=== PATIENT | female | born 1965 | race Caucasian/White ===

== ENCOUNTER 2023-02-17 10:08 | Emergency (ER) | payer MEDICAID, SELFPAY ==
[2023-02-17] VITALS (14 sets, daily range): BP systolic 128–153; BP diastolic 76–92; PULSE 70–85; RESP 18; TEMP 36.7; O2SAT 94–98; BMI 25.0
--- NOTE | 2023-02-17 10:37 | CRLHL7_ITS ---
For Patients: As a result of the Century Cures Act, medical imaging exams and procedure reports are released immediately into your electronic medical record. You may view this report before your referring provider. If you have questions, please contact your health care provider. INDICATION: CHEST PAIN TECHNIQUE: Chest 2 views COMPARISON: 01/14/2017 FINDINGS: Lung volumes are increased. No infiltrate or edema. No effusion or pneumothorax. Mediastinum stable. IMPRESSION: Mild obstructive pulmonary physiology. No infiltrate. Dictated by Phil Marinelli MD @ 02/17/2023 11:51:22 AM (Electronically Signed)
--- NOTE | 2023-02-17 10:38 | ED_ITS ---
HPI - Chest Pain General Date Seen: 02/17/23 Chief Complaint: Hypertension Stated Complaint: High BP Time Seen by Provider: 02/17/23 10:24 Source: patient Mode of arrival: ambulatory Limitations: no limitations History of Present Illness HPI narrative: Patient is a 57-year-old female presents here with the 2-3 week history of high blood pressure in left upper chest discomfort, this chest discomfort comes and goes occurs randomly with rest, and also with exertion, it lasts for few seconds and then goes away, there is no radiation to her neck back or shoulders associated with this. This however has worried her as she has lost a couple family members recently, a cousin of cirrhosis but had hardening of the arteries, he was the same ages her, and she also lost her brother a number of years ago who of a heart attack in his early 50s. She says she knows she has risk factors, he smokes and smokes and she is 15 years old least a pack a day, now with her elevated blood pressure, she says her cholesterol is elevated not been checked for a few years, is on no medication for this no history of diabetes, and denies any use of any illicit substances. No leg swelling, no pleuritic pain, no coughing, no syncope, no past history DVTs pulmonary emboli, aortic rupture or disastrous. She is using some cold medicines [id number] Tylenol with decongestant for some sinus issues in taking licorice root also. complaint: chest pain Related Data Home Medications Medication Instructions Recorded Confirmed albuterol sulfate 90 mcg/actuation 1 - 2 puff inhalation Q6H PRN 02/17/23 02/17/23 aerosol inhaler (Ventolin HFA) dyspnea amoxicillin 875 mg-potassium 1 tab PO BID 02/17/23 02/17/23 clavulanate 125 mg tablet clobetasol 0.05 % topical cream topical BID 02/17/23 Allergies Allergy/AdvReac Type Severity Reaction Status Date / Time No Known Drug Allergies Allergy Verified 02/17/23 13:18 Review of Systems Status of ROS Reports: 10 or more systems reviewed and unremarkable except as noted in History and below PFSH PFSH Social History Smoking Status: Current every day smoker How often do you have a drink containing alcohol: never AUDIT-C Alcohol total score: 0 Non-prescribed substance use: denies use Exam Narrative Exam Narrative: Patient is a very nice lady she is seen in room 2, nontoxic in no having chest pain currently. Her vital signs are reviewed. Pupils are equal round reactive to light there is no scleral icterus and redness, TMs are normal, oropharynx normal, fundi appear normal, with no acute changes. Extraocular muscles are normal and cranial nerves 3-12 are normal, pharynx is normal, there is no lymphadenopathy anterior posterior chains, carotid upstrokes are equal bilaterally, JVP is flat. Neck is supple full range of motion there is no meningismus, thyroid is normal palpable, not enlarged. And nontender. Chest is good air entry bilaterally slightly prolonged expiratory phase with occasional wheezes noted. Heart sounds no clicks murmurs or gallops are noted, no palpable chest pain, although she tells me that it is sore in the left upper chest region. No masses noted, her abdomen is soft, there is no tenderness to palpation, no organomegaly, no CVA tenderness, normal pulses in her lower extremities, normal cap refill no edema negative Homans signs she moves all extremities independently well, and her skin shows no petechiae or rashes. Const Vital Signs, click to edit/add: Vital Signs - 24 hr 02/17/23 10:13 02/17/23 11:57 02/17/23 12:00 Temperature 98.0 F Pulse Rate 79 75 Pulse Rate [Right Pulse Oximeter] 85 Respiratory Rate 18 Blood Pressure Blood Pressure [Right Upper Arm] 153/84 H Pulse Oximetry 95 97 96 Oxygen Delivery Method Room Air 02/17/23 12:01 02/17/23 12:30 02/17/23 12:31 Temperature Pulse Rate 71 81 78 Pulse Rate [Right Pulse Oximeter] Respiratory Rate Blood Pressure 138/76 128/88 Blood Pressure [Right Upper Arm] Pulse Oximetry 98 94 94 Oxygen Delivery Method 02/17/23 13:01 02/17/23 13:02 02/17/23 13:30 Temperature Pulse Rate 76 77 74 Pulse Rate [Right Pulse Oximeter] Respiratory Rate Blood Pressure 147/90 H Blood Pressure [Right Upper Arm] Pulse Oximetry 96 97 97 Oxygen Delivery Method 02/17/23 13:31 02/17/23 14:00 02/17/23 14:01 Temperature Pulse Rate 76 70 73 Pulse Rate [Right Pulse Oximeter] Respiratory Rate Blood Pressure 136/88 133/92 H Blood Pressure [Right Upper Arm] Pulse Oximetry 96 97 96 Oxygen Delivery Method 02/17/23 14:30 02/17/23 14:31 Temperature Pulse Rate 78 76 Pulse Rate [Right Pulse Oximeter] Respiratory Rate Blood Pressure 133/83 Blood Pressure [Right Upper Arm] Pulse Oximetry 96 96 Oxygen Delivery Method Documenting provider has reviewed patient's vital signs: yes Course Course Hospital Course: Discussed the with the patient, that her D-dimer ws ok, but given hx would suggest a CT , we should do a chest CT to rule out a clot, will repeat the troponin, initial 1 was normal, she was comfortable this plan. Reevaluation(s) Time: 15:31 Vital Signs Vital signs: Initial Vital Signs Temperature 98.0 F 02/17/23 10:13 Temperature Source Temporal Artery Scan 02/17/23 10:13 Pulse Rate 85 02/17/23 10:13 Respiratory Rate 18 02/17/23 10:13 Blood Pressure 153/84 H 02/17/23 10:13 Blood Pressure Mean 107 02/17/23 10:13 Blood Pressure Position Sitting 02/17/23 10:13 Pulse Oximetry 95 02/17/23 10:13 Oxygen Delivery Method Room Air 02/17/23 10:13 Vital Signs Temperature 98.0 F 02/17/23 10:13 Pulse Rate 85 02/17/23 10:13 Respiratory Rate 18 02/17/23 10:13 Blood Pressure 153/84 H 02/17/23 10:13 Pulse Oximetry 95 02/17/23 10:13 Oxygen Delivery Method Room Air 02/17/23 10:13 Temperature 98.0 F 02/17/23 10:13 Pulse Rate 76 02/17/23 14:31 Respiratory Rate 18 02/17/23 10:13 Blood Pressure 133/83 02/17/23 14:31 Pulse Oximetry 96 02/17/23 14:31 Oxygen Delivery Method Room Air 02/17/23 10:13 MDM - Chest Pain MDM Narrative Medical decision making narrative: During the evaluation of this patient I considered multiple differential diagnosis is. The life-threatening differential diagnosis include coronary disease/[place], pulmonary embolism, pneumothorax, pneumonia, and aortic dissection. Other differential diagnosis included but were not limited to pericarditis, myocarditis, chest wall pain, GERD, esophageal rupture, rib fracture contusion, pleurisy, as well as other etiologies. Medical Records Data Attestation: I reviewed the patient's medical records. Lab Data Attestation: I reviewed the patient's lab results. Labs: Lab Results 02/17/23 02/17/23 02/17/23 Range/Units 10:37 10:38 11:00 WBC 8.27 (4.50-11.00) K/uL RBC 4.80 (4.00-5.20) m/uL Hgb 14.7 (12.0-16.0) gm/dL Hct 42.8 (33.0-51.0) % MCV 89 (80-100) fL MCH 31 (26-34) pg MCHC 34 (32-36) gm/dL RDW Coeff of Nichole 12.9 (11.5-15.5) % Plt Count 244 (140-440) K/uL Neut % (Auto) 67.6 (42.0-72.0) % Lymph % (Auto) 27.0 (20-44) % Wells % (Auto) 4.1 (0.0-11.0) % Eos % (Auto) 0.7 (0.0-7.0) % Baso % (Auto) 0.5 (0.0-3.0) % Neut # (Auto) 5.59 (1.7-7.0) K/uL Lymph # (Auto) 2.23 (0.90-2.90) K/uL Wells # (Auto) 0.30 (0.00-0.90) K/UL Eos # (Auto) 0.06 (0.00-0.50) K/uL Baso # (Auto) 0.04 (0.00-0.30) K/uL INR 0.84 L (0.91-1.10) APTT 29 (23-33) Seconds D-Dimer Quant (PE/DVT) Cancelled Sodium (135-149) mmol/L Potassium (3.6-5.1) mmol/L Chloride (96-114) mmol/L Carbon Dioxide (20-32) mmol/L BUN (7-30) mg/dL Creatinine (0.5-1.5) mg/dL Estimated Creat Clear Estimated GFR ml/min Glucose (60-115) mg/dL Calcium (8.4-10.6) mg/dL NT-Pro-B Natriuret Pep pg/mL TSH (0.270-4.20) uIU/mL POC Troponin I 0.01 (0.01-0.04) ng/ml 02/17/23 02/17/23 Range/Units 11:00 12:39 WBC (4.50-11.00) K/uL RBC (4.00-5.20) m/uL Hgb (12.0-16.0) gm/dL Hct (33.0-51.0) % MCV (80-100) fL MCH (26-34) pg MCHC (32-36) gm/dL RDW Coeff of Nichole (11.5-15.5) % Plt Count (140-440) K/uL Neut % (Auto) (42.0-72.0) % Lymph % (Auto) (20-44) % Wells % (Auto) (0.0-11.0) % Eos % (Auto) (0.0-7.0) % Baso % (Auto) (0.0-3.0) % Neut # (Auto) (1.7-7.0) K/uL Lymph # (Auto) (0.90-2.90) K/uL Wells # (Auto) (0.00-0.90) K/UL Eos # (Auto) (0.00-0.50) K/uL Baso # (Auto) (0.00-0.30) K/uL INR (0.91-1.10) APTT (23-33) Seconds D-Dimer Quant (PE/DVT) 0.29 Sodium 132 L (135-149) mmol/L Potassium 4.4 (3.6-5.1) mmol/L Chloride 98 (96-114) mmol/L Carbon Dioxide 28 (20-32) mmol/L BUN 13 (7-30) mg/dL Creatinine 0.5 (0.5-1.5) mg/dL Estimated Creat Clear 143.26 Estimated GFR 109 ml/min Glucose 100 (60-115) mg/dL Calcium 8.8 (8.4-10.6) mg/dL NT-Pro-B Natriuret Pep 44 pg/mL TSH 0.920 (0.270-4.20) uIU/mL POC Troponin I 0.00 L (0.01-0.04) ng/ml Imaging Data CT scan - chest: Attestation: I have reviewed the pertinent imaging results. My impression: No acute changes emphysematous changes of lungs Radiologist's impression: Patient: IGNACIO ESTES Facility:?[facility] Patient ID:?[id number] Site Patient ID:?[id number]. Site :?[id number] Study:?CT Chest Angio w/ 95cc Isovue-370 PE Protocol-02/17/2023 1:23:34 PM Ordering Physician:Walker Jolly Final Report: INDICATION: Chest pain. Shortness of breath. TECHNIQUE: CT chest PE was acquired with 95 cc Omnipaque 350 IV contrast. COMPARISON: Chest x-ray 02/17/2023. FINDINGS: Heart and vasculature: Contrast opacification of the pulmonary arterial tree is adequate. No sign of pulmonary embolism. The heart size is normal. No definite evidence right heart strain. There is aneurysmal dilatation of the ascending thoracic aorta with a diameter of 4.3 centimeters. Lungs and pleura: Paraseptal and centrilobular emphysema most notable in the upper lung zones. Bilateral basilar linear atelectasis and/or scar. No pulmonary consolidation. No pleural effusions, pleural thickening, or pneumothorax. Lymph nodes/mediastinum: No mediastinal, hilar, or axillary adenopathy. Chest wall: No masses. Upper abdomen: No acute or significant findings. Bones: Unremarkable for age. IMPRESSION: 1. No pulmonary arterial embolism. 2. Pulmonary emphysema. 3. Aneurysmal dilatation of the ascending thoracic aorta with a diameter of 4.3 centimeters. Please note that all CT scans at this facility use dose modulation, iterative reconstruction, and/or weight-based dosing when appropriate to reduce radiation dose to as low as reasonably achievable. Dictated by Shekhar Lozano MD @ 02/17/2023 2:24:14 PM (Electronic Signature) ECG Data Attestation: I personally reviewed and interpreted this ECG as follows: ECG interpretation date: 02/17/23 Interpretation: No acute changes on EKG, normal sinus rhythm ventricular rate 75, QRS QT normal Discharge Plan Discharge Clinical Impression: Atypical chest pain, Emphysema lung, Tobacco use disorder, Ascending aorta dilatation, Hypertension Patient Disposition: Home, Self-Care Condition: Stable Instructions: Chest Pain (DC), How to Stop Smoking (ED), Emphysema (DC), Chronic Hypertension (DC), How to Quit Using Smokeless Tobacco (ED), Electronic Cigarettes and Your Health (ED) Additional Instructions: Good news there is no evidence of abdominal aortic aneurysm, there is however evidence of dilatation of your ascending aorta, which I discussed with you will need follow-up with her primary care physician and likely cardiology evaluation and surveillance. He also need to have a active wrist reduction, smoking cessat ion, management of your blood pressure, is paramount for decreasing risks associated with the aorta issue. The size that you already have emphysema on the CT scan of your lung, both excellent reasons to stop smoking at this point. Follow-up within you for 2 weeks with primary care suggested, return here if increasing chest pain shortness of breath, For the chest complaints we often will say as follow-up to suggest a stress echo. Prescriptions: No Action clobetasol 0.05 % cream topical BID albuterol sulfate [Ventolin HFA] 90 mcg/actuation HFA aerosol inhaler 1 - 2 puff INHALATION Q6H PRN (Reason: dyspnea) amoxicillin-pot clavulanate 875-125 mg tablet 1 tab PO BID Follow Up/Referrals: Yary Santillan PA [Primary Care Provider] - Stand Alone Forms: [employer] Info Instructions
[2023-02-17 11:07] LABS: Basophils Absolute Auto 0.04 K/uL (0.00-0.30); Basophils Percent Auto 0.5 % (0.0-3.0); Eosinophils Absolute Auto 0.06 K/uL (0.00-0.50); Eosinophils Percent Auto 0.7 % (0.0-7.0); Hematocrit 42.8 % (33.0-51.0); Hemoglobin* 14.7 gm/dL (12.0-16.0); Immature Granulocytes Abs Auto 0.01 K/uL (0.00-0.30); Immature Granulocytes Pct Auto 0.1 %; Lymphocytes Absolute Auto 2.23 K/uL (0.90-2.90); Mean Corpuscular HGB Conc 34 gm/dL (32-36); Mean Corpuscular Hemoglobin 31 pg (26-34); Mean Corpuscular Volume 89 fL (80-100); Monocytes Percent Auto 4.1 % (0.0-11.0); Neutrophils Absolute Auto 5.59 K/uL (1.7-7.0); Neutrophils Percent Auto 67.6 % (42.0-72.0); Platelet Count* 244 K/uL (140-440); RDW Coefficient of Variation % 12.9 % (11.5-15.5); White Blood Count* 8.27 K/uL (4.50-11.00)
[2023-02-17 11:08] LABS: Slide Review Reflex No
[2023-02-17 11:20] LABS: Chloride* 98 mmol/L (96-114); Potassium* 4.4 mmol/L (3.6-5.1); Sodium* 132 mmol/L (135-149)
[2023-02-17 11:22] LABS: INR 0.84 (0.91-1.10)
[2023-02-17 11:23] LABS: Blood Urea Nitrogen* 13 mg/dL (7-30); Carbon Dioxide* 28 mmol/L (20-32); Creatinine* 0.5 mg/dL (0.5-1.5); Est. Creatinine Clearance* 143.26; Estimated Glomerular Filt Rate 109 ml/min; Partial Thromboplastin Time* 29 Seconds (23-33)
[2023-02-17 11:24] LABS: Calcium* 8.8 mg/dL (8.4-10.6); Glucose* 100 mg/dL (60-115)
[2023-02-17 11:25] LABS: D Dimer Quantitative* 0.29 ug/ml (0.00-0.50)
[2023-02-17 11:33] LABS: NT Pro B Type NatriureticPept* 44 pg/mL
[2023-02-17 11:46] LABS: Troponin, Point-of-Care* 0.01 ng/ml (0.01-0.04)
--- NOTE | 2023-02-17 12:28 | CRLHL7_ITS ---
For Patients: As a result of the Century Cures Act, medical imaging exams and procedure reports are released immediately into your electronic medical record. You may view this report before your referring provider. If you have questions, please contact your health care provider. INDICATION: Chest pain. Shortness of breath. TECHNIQUE: CT chest PE was acquired with 95 cc Omnipaque 350 IV contrast. COMPARISON: Chest x-ray 02/17/2023. FINDINGS: Heart and vasculature: Contrast opacification of the pulmonary arterial tree is adequate. No sign of pulmonary embolism. The heart size is normal. No definite evidence right heart strain. There is aneurysmal dilatation of the ascending thoracic aorta with a diameter of 4.3 centimeters. Lungs and pleura: Paraseptal and centrilobular emphysema most notable in the upper lung zones. Bilateral basilar linear atelectasis and/or scar. No pulmonary consolidation. No pleural effusions, pleural thickening, or pneumothorax. Lymph nodes/mediastinum: No mediastinal, hilar, or axillary adenopathy. Chest wall: No masses. Upper abdomen: No acute or significant findings. Bones: Unremarkable for age. IMPRESSION: 1. No pulmonary arterial embolism. 2. Pulmonary emphysema. 3. Aneurysmal dilatation of the ascending thoracic aorta with a diameter of 4.3 centimeters. Please note that all CT scans at this facility use dose modulation, iterative reconstruction, and/or weight-based dosing when appropriate to reduce radiation dose to as low as reasonably achievable. Dictated by Shekhar Lozano MD @ 02/17/2023 2:24:14 PM (Electronically Signed)
[2023-02-17] MEDS: 0.9 % SODIUM CHLORIDE 1000 ml 1,000 ML IV (13:26)
--- NOTE | 2023-02-17 14:29 | CRLHL7_ITS ---
For Patients: As a result of the Century Cures Act, medical imaging exams and procedure reports are released immediately into your electronic medical record. You may view this report before your referring provider. If you have questions, please contact your health care provider. Indication: Screening for abdominal aortic aneurysm. Ascending aortic aneurysm on a recent chest CT Technique: Sonography of the abdominal aorta was performed. Comparison: None of the abdomen Findings: There are atherosclerotic changes of the aorta. There is some ectasia the aorta but no al aneurysmal dilation. The proximal aorta measures 2.6 x 2.6 centimeters. The mid aorta measures 2.2 x 2.2 centimeters. The distal aorta measures 2.1 x 2.5 centimeters which is mildly ectatic. There is ectasia of the proximal common iliac arteries. The right proximal common iliac artery measures 1.3 x 1.3 centimeters and the left common iliac artery measures 1.1 x 1.2 centimeters. Impression: 1. Atherosclerotic changes of the abdominal aorta and the common iliac arteries. 2. 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 3. 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
== END 2023-02-17 15:46 | disposition home or self-care (01) ==
PROVIDERS: Emergency Provider Family Medicine; PCP Physician Assistant
DX: R07.9 Chest pain, unspecified (principal); I77.819 Aortic ectasia, unspecified site; J43.9 Emphysema, unspecified; I10 Essential (primary) hypertension; F17.200 Nicotine dependence, unspecified, uncomplicated
CPT/HCPCS: 36415; 71046; 71260; 76775; 80048; 83880; 84443; 84484; 85025; 85379; 85610; 85730; 93005; 99284; 99285; J7030; Q9967